=== PATIENT | male | born 1935 | race Asian ===

== ENCOUNTER 2021-12-01 09:30 | Inpatient (IN) | payer MEDICARE, OTHER ==
[~2021-12-01] VITALS: Ht 165.1 cm; Wt 65.8 kg
[~2021-12-01 09:30] MED LIST: AMLO5TAB88; ASPI-1497; SIMV-43
[2021-12-01] MEDS ORDERED: ACETAMINOPHEN 325MG TABLET PO STA (09:41)
[2021-12-01] MEDS ORDERED: SODIUM CHLORIDE 0.9% 1000ML BAG (SEPSIS BOLUS) IV ONE (09:45)
[2021-12-01] MEDS ORDERED: ACETAMINOPHEN 650MG SUPP PR ONE (10:00)
[2021-12-01 10:11] LABS: HEMATOCRIT. 43.2 % (42.0-52.0); HEMOGLOBIN. 14.4 g/dL (14.0-18.0); MEAN CORPUSCULAR HEMOGLOBIN 32.7 pg (28.0-32.0); MEAN CORPUSCULAR VOLUME 98.3 fL (80.0-94.0); MEAN PLATELET VOLUME 6.8 fl (7.4-10.4); PLATELET 205 x1000/uL (130-400); RED BLOOD CELL COUNT 4.39 mill/uL (4.7-6.1); RED CELL DISTRIBUTION WIDTH 14.2 % (11.6-14.6)
[2021-12-01 10:19] LABS: CHLORIDE 94 mEq/L (98-107)
[2021-12-01 10:26] LABS: PROTHROMBIN TIME 10.9 sec (9.6-11.0)
[2021-12-01 10:42] LABS: PLATELET ESTIMATE NORMAL
[2021-12-01 10:48] LABS: CLARITY URINE CLEAR (CLEAR); COLOR URINE YELLOW (YELLOW); KETONES URINE TRACE (NEGATIVE); LEUKOCYTE ESTERASE URINE NEGATIVE (NEGATIVE); NITRITE URINE NEGATIVE (NEGATIVE); OCCULT BLOOD URINE 2+ (NEGATIVE); PROTEIN URINE NEGATIVE (NEGATIVE); SPECIFIC GRAVITY URINE 1.013 (1.005-1.030)
[2021-12-01] MEDS ORDERED: LORAZEPAM 1MG TABLET PO ONE (12:00)
[2021-12-01] MEDS ORDERED: PIPERACILLIN/TAZ 3.375G PREMIX 50 ML IV NR (15:30)
[2021-12-01] MEDS ORDERED: ONDANSETRON HCL 4MG/2ML INJ IV PRN (15:30)
[2021-12-01] MEDS: SODIUM CHLORIDE 0.9% 1,000 ML IV SCH (16:20)
[2021-12-01] MEDS ORDERED: VANCOMYCIN 1G PREMIX 200 ML IV ONE (17:00)
[2021-12-01] MEDS ORDERED: VANCOMYCIN 1GM PMX (XELLIA) 200 ML IV NR (17:30)
[2021-12-01] MEDS: ACETAMINOPHEN 325MG TABLET PO PRN (17:31)
[2021-12-01] MEDS ORDERED: AMPICILLIN 30MG/ML SYR IV SCH (20:00)
[2021-12-01 20:20] VITALS: BP 125/66
[2021-12-01] MEDS ORDERED: METO25TA6 PO (21:21)
[2021-12-01] MEDS ORDERED: PIPERACILLIN/TAZOBACTAM 3.375 G in DEXTROSE 5% WATER 50 ML IV SCH (23:00)
[2021-12-01] MEDS ORDERED: CEFTRIAXONE 1,000 MG in DEXTROSE 5% WATER 50 ML IV SCH (23:00)
[2021-12-02] VITALS: BP 142/60
[2021-12-02] MEDS: SODIUM CHLORIDE 0.9% 1,000 ML IV SCH (03:59)
[2021-12-02 04:00] VITALS: BP 142/69
[2021-12-02] MEDS ORDERED: ACETAMINOPHEN 650MG SUPP PR PRN (04:15)
[2021-12-02 06:08] LABS: HEMOGLOBIN. 13.1 g/dL (14.0-18.0); MEAN CORPUSCULAR HEMOGLOBIN 33.6 pg (28.0-32.0); MEAN CORPUSCULAR VOLUME 97.6 fL (80.0-94.0); PLATELET 181 x1000/uL (130-400); RED CELL DISTRIBUTION WIDTH 14.5 % (11.6-14.6)
[2021-12-02 06:59] LABS: CHLORIDE 100 mEq/L (98-107)
[2021-12-02 08:00] VITALS: BP 120/62
[2021-12-02] MEDS: HEPARIN 5000 UNITS/ML VIAL SUBCUT SCH ×2 (08:22→20:44)
[2021-12-02] MEDS ORDERED: CEFTRIAXONE 1 G PREMIX 50 ML IV SCH (09:00)
[2021-12-02] MEDS ORDERED: DEXT 5%/0.45% NACL KCL 40MEQ/L 1,000 ML IV SCH (09:00)
[2021-12-02 12:00] VITALS: BP 142/69
[2021-12-02] MEDS ORDERED: POTASSIUM CHLORIDE 20MEQ TABLET SR PO SCH (12:45)
[2021-12-02] MEDS: ACETAMINOPHEN 325MG TABLET PO PRN ×2 (12:58→23:41)
[2021-12-02] MEDS ORDERED: DOCUSATE SODIUM 250MG CAPSULE PO NR (14:45)
[2021-12-02 15:34] LABS: PLATELET ESTIMATE NORMAL
[2021-12-02 16:00] VITALS: BP 137/71
[2021-12-02] MEDS: CEFTRIAXONE 2 G in DEXTROSE 5% WATER 50 ML IV SCH (18:00)
[2021-12-02] MEDS: AMPICILLIN 2,000 MG in SODIUM CHLORIDE 0.9% 100 ML IV SCH (18:47)
[2021-12-02 20:00] VITALS: BP 137/74
[2021-12-02] MEDS: ACYCLOVIR INJ 750 MG in DEXT 5% WATER 125 ML IV SCH (20:37)
[2021-12-02] MEDS: VANCOMYCIN 1250MG in DEXTROSE 5% WATER 250ML IV SCH (20:37)
[2021-12-03] VITALS: BP 140/76
[2021-12-03] MEDS: AMPICILLIN 2,000 MG in SODIUM CHLORIDE 0.9% 100 ML IV SCH ×4 (03:11→18:15)
[2021-12-03 04:00] VITALS: BP 123/70
[2021-12-03] MEDS: ACYCLOVIR INJ 750 MG in DEXT 5% WATER 125 ML IV SCH (04:25)
[2021-12-03] MEDS: CEFTRIAXONE 2 G in DEXTROSE 5% WATER 50 ML IV SCH ×2 (05:35→17:00)
[2021-12-03 07:10] LABS: BASOPHILS % 0.2 % (0.0-2.0); EOSINOPHILS % 0.5 % (0.0-5.0); HEMATOCRIT. 36.4 % (42.0-52.0); HEMOGLOBIN. 12.3 g/dL (14.0-18.0); LYMPHOCYTES % 9.1 % (20.0-50.0); MEAN CORPUSCULAR HEMOGLOBIN 33.2 pg (28.0-32.0); MEAN CORPUSCULAR VOLUME 97.7 fL (80.0-94.0); MEAN PLATELET VOLUME 7.1 fl (7.4-10.4); MONOCYTES % 9.4 % (2.0-8.0); NEUTROPHILS % 80.8 % (40.0-76.0); PLATELET 154 x1000/uL (130-400); RED BLOOD CELL COUNT 3.72 mill/uL (4.7-6.1); RED CELL DISTRIBUTION WIDTH 14.2 % (11.6-14.6)
[2021-12-03 07:38] LABS: CHLORIDE 101 mEq/L (98-107)
[2021-12-03 08:00] VITALS: BP 146/83
[2021-12-03] MEDS: HEPARIN 5000 UNITS/ML VIAL SUBCUT SCH ×2 (08:17→21:08)
[2021-12-03] MEDS: DOCUSATE SODIUM 250MG CAPSULE PO SCH (08:38)
[2021-12-03] MEDS: ACETAMINOPHEN 325MG TABLET PO PRN (11:17)
[2021-12-03 12:00] VITALS: BP 144/75
[2021-12-03] MEDS ORDERED: POTASSIUM CHLORIDE 20MEQ TABLET SR PO NR (12:00)
[2021-12-03 12:02] LABS: *AMPHETAMINES SCREEN URINE NEGATIVE (NEGATIVE); *BARBITURATES SCREEN URINE NEGATIVE (NEGATIVE); *BENZODIAZEPINES SCREEN URINE NEGATIVE (NEGATIVE); *COCAINE SCREEN URINE NEGATIVE (NEGATIVE); CANNABINOID URINE SCREEN NEGATIVE (NEGATIVE); METHADONE URINE SCREEN NEGATIVE (NEGATIVE); OPIATES URINE SCREEN NEGATIVE (NEGATIVE); PHENCYCLIDINE URINE SCREEN NEGATIVE (NEGATIVE)
[2021-12-03 16:00] VITALS: BP 138/78
[2021-12-03] MEDS: ACYCLOVIR INJ 600 MG in DEXT 5% WATER 100 ML IV SCH (17:32)
[2021-12-03 20:00] VITALS: BP 127/70
[2021-12-03] MEDS: VANCOMYCIN 1250MG in DEXTROSE 5% WATER 250ML IV SCH (21:08)
[2021-12-04] VITALS: BP 137/85
[2021-12-04 04:00] VITALS: BP 149/78
[2021-12-04] MEDS: ACYCLOVIR INJ 600 MG in DEXT 5% WATER 100 ML IV SCH ×2 (04:30→20:21)
[2021-12-04] MEDS: CEFTRIAXONE 2 G in DEXTROSE 5% WATER 50 ML IV SCH ×2 (05:32→17:55)
[2021-12-04 07:58] LABS: CHLORIDE 94 mEq/L (98-107)
[2021-12-04 08:00] VITALS: BP 125/78
[2021-12-04] MEDS: DOCUSATE SODIUM 250MG CAPSULE PO SCH (08:14)
[2021-12-04] MEDS: HEPARIN 5000 UNITS/ML VIAL SUBCUT SCH ×2 (08:14→20:38)
[2021-12-04 12:00] VITALS: BP 135/72
[2021-12-04] MEDS ORDERED: POTASSIUM CHLORIDE 20MEQ TABLET SR PO NR (12:00)
[2021-12-04] MEDS: SODIUM CHLORIDE 0.9% 1,000 ML IV SCH ×2 (13:00→20:37)
[2021-12-04 16:00] VITALS: BP 140/74
[2021-12-04 16:23] LABS: PROTHROMBIN TIME 10.3 sec (9.6-11.0)
[2021-12-04] MEDS: POTASSIUM CHLORIDE 20MEQ TABLET SR PO SCH (17:55)
[2021-12-04 20:00] VITALS: BP 117/69
[2021-12-05] VITALS: BP 127/75
[2021-12-05 04:00] VITALS: BP 149/82
[2021-12-05] MEDS: ACYCLOVIR INJ 600 MG in DEXT 5% WATER 100 ML IV SCH ×2 (05:42→17:53)
[2021-12-05 06:16] LABS: BASOPHILS % 0.8 % (0.0-2.0); HEMATOCRIT. 36.5 % (42.0-52.0); HEMOGLOBIN. 12.8 g/dL (14.0-18.0); LYMPHOCYTES % 22.2 % (20.0-50.0); MEAN CORPUSCULAR HEMOGLOBIN 33.9 pg (28.0-32.0); MEAN CORPUSCULAR VOLUME 96.8 fL (80.0-94.0); MEAN PLATELET VOLUME 7.2 fl (7.4-10.4); MONOCYTES % 13.1 % (2.0-8.0); NEUTROPHILS % 55.9 % (40.0-76.0); PLATELET 180 x1000/uL (130-400); RED BLOOD CELL COUNT 3.77 mill/uL (4.7-6.1)
[2021-12-05 07:07] LABS: CHLORIDE 96 mEq/L (98-107)
[2021-12-05 07:16] LABS: T4 FREE 1.37 ng/dL (0.76-1.46)
[2021-12-05] MEDS: HEPARIN 5000 UNITS/ML VIAL SUBCUT SCH ×2 (09:17→22:40)
[2021-12-05] MEDS: POTASSIUM CHLORIDE 20MEQ TABLET SR PO SCH ×2 (09:17→17:53)
[2021-12-05] MEDS: DOCUSATE SODIUM 250MG CAPSULE PO SCH (09:17)
[2021-12-05 12:00] VITALS: BP 119/87
[2021-12-05] MEDS: SODIUM CHLORIDE 0.9% 1,000 ML IV SCH (15:40)
[2021-12-05 16:00] VITALS: BP 131/79
[2021-12-05 20:00] VITALS: BP 104/81
[2021-12-06] VITALS: BP 122/74
[2021-12-06 04:00] VITALS: BP 152/90
[2021-12-06] MEDS: SODIUM CHLORIDE 0.9% 1,000 ML IV SCH ×2 (05:54→18:14)
[2021-12-06] MEDS: ACYCLOVIR INJ 600 MG in DEXT 5% WATER 100 ML IV SCH ×2 (05:54→18:13)
[2021-12-06] MEDS: POTASSIUM CHLORIDE 20MEQ TABLET SR PO SCH ×2 (09:01→18:13)
[2021-12-06] MEDS: DOCUSATE SODIUM 250MG CAPSULE PO SCH (09:01)
[2021-12-06] MEDS: HEPARIN 5000 UNITS/ML VIAL SUBCUT SCH (09:02)
[2021-12-06 12:00] VITALS: BP 130/76
[2021-12-06 14:21] VITALS: BP 140/76
[2021-12-06 16:00] VITALS: BP 156/74
[2021-12-06 18:51] VITALS: BP 131/79
== END 2021-12-06 20:15 | disposition home or self-care (01) | DRG 71 ==
LOC: ER 09:30 → 7EST 21:06 → 7WST 21:29
PROVIDERS: ADMIT Internal Medicine; ATTEND Internal Medicine
PROC: 4A00X4Z Measurement of Central Nervous Electrical Activity, External Approach (ICD-10-PCS; principal; 2021-12-04)
DX: G93.41 Metabolic encephalopathy (principal); E87.1 Hypo-osmolality and hyponatremia; R65.10 Systemic inflammatory response syndrome (SIRS) of non-infectious origin without acute organ dysfunction; Z20.822 Contact with and (suspected) exposure to COVID-19; I10 Essential (primary) hypertension; M85.80 Other specified disorders of bone density and structure, unspecified site; Z79.899 Other long term (current) drug therapy; Z79.82 Long term (current) use of aspirin; D72.825 Bandemia
CPT/HCPCS: 36415; 70551; 70553; 71045; 74176; 80048; 80053; 80202; 80305; 81003; 82533; 83605; 83970; 84145; 84439; 84443; 85025; 85651; 86141; 87426; 87804; 93005; 93923; 93970; 95816; 97110; 97116; 97161; 97162; 97165; 97166; 97530; 97535; 99291; J0133; J0290; J0696; J1644; J2543; J3370; J7030; J7050; J7060